=== PATIENT | male | born 1975 | race Caucasian/White ===

== ENCOUNTER 2024-09-18 09:38 | Emergency (ER) | payer MEDICAID ==
[~2024-09-18] VITALS: Ht 177.8 cm; Wt 72.7 kg
[2024-09-18 09:43] VITALS: BP 115/71; PULSE 59; RESP 16; TEMP 98.1; O2SAT 98
[2024-09-18] MEDS ORDERED: FAMO20TA8 PO (10:33)
== END 2024-09-18 10:57 | disposition home or self-care (01) ==
LOC: ER 09:38
DX: K21.9 Gastro-esophageal reflux disease without esophagitis (principal); Z79.899 Other long term (current) drug therapy
CPT/HCPCS: 99281; 99283